=== PATIENT | female | born 1985 | race African-American/Black ===

== ENCOUNTER 2017-07-20 16:55 | Emergency (ER) | payer OTHER ==
[~2017-07-20] VITALS: Ht 175.3 cm; Wt 93.4 kg
[2017-07-20 19:07] VITALS: BP 121/58
== END 2017-07-20 19:08 | disposition home or self-care (01) ==
LOC: FSED 16:55
DX: R07.9 Chest pain, unspecified (principal)
CPT/HCPCS: 93005; 99283

== ENCOUNTER → 2021-10-27 | Day surgery (SDC) | payer OTHER ==
[2021-10-23 11:32] LABS: BASOPHILS # (AUTO) 0.1 (0.0-0.1); EOSINOPHILS # (AUTO) 0.1 (0.0-0.4); EOSINOPHILS % 1.5 % (0.0-6.0); HEMATOCRIT 39.9 % (34.2-44.1); HEMOGLOBIN 13.1 g/dL (12.0-16.0); LYMPHOCYTES # (AUTO) 2.5 (1.0-3.2); LYMPHOCYTES % 40.4 % (18.0-39.1); MEAN CORPUSCULAR HEMOGLOBIN 32.1 pg (28-32); MEAN CORPUSCULAR HGB CONC 32.8 g/dL (31-35); MEAN CORPUSCULAR VOLUME 97.8 fL (81-99); MONOCYTES # (AUTO) 0.5 (0.2-0.8); MONOCYTES % 8.9 % (4.4-11.3); NEUTROPHILS # (AUTO) 2.9 (2.1-6.9); PLATELET COUNT 277 x10e3/uL (140-360); RED BLOOD COUNT 4.08 x10e6/uL (3.6-5.1); RED CELL DISTRIBUTION WIDTH 11.7 % (11.7-14.4)
[~2021-10-27] MED LIST: ADVAIR 100-501 EACH INH; ALBUTEROL HFA INH; BUSPIRONE HCL10 MG PO; CLINDAMYCIN 1%-30 GM TOP; CLOBETASOL 0.0560 GM TOP; FENTANYL CITRATE/PF 100MCG/2 ML INJ ONE; GABAPENTIN400 MG PO; LIDOCAINE HCL 2% LOCAL INJ 5 ML SDV VIAL INJ ONE; LINZESS145 MCG PO; METOCLOPRAMIDE HCL 10 MG/2ML VIAL ONE; METOPROLOL SUCC25 MG PO; MIDAZOLAM HCL 2 MG/2 ML VIAL ONE; MONTELUKAST SOD10 MG PO; PHENTERMINE H37.5 MG PO; POVIDONE IODINE 0.05% 0.05 % ML PO ONE; PROPOFOL IV EMULSION 10 MG/ML 20 ML VIAL ONE; SERTRALINE HCL50 MG PO; SIMETHICONE 40 MG/0.6 ML BTL ONE; SPIRONOLACTONE25 MG PO; TOPAMAX100 MG PO; TRAZODONE HCL100 MG PO; VIT D2 PO; [UNRECOGNIZED DRUG - OTHER] PO
[2021-10-27 14:25] VITALS: BP 105/56
== END | disposition home or self-care (01) ==
LOC: OR 12:20
PROVIDERS: ATTEND Internal Medicine Gastroenterology
DX: K29.70 Gastritis, unspecified, without bleeding (principal); K20.90 Esophagitis, unspecified without bleeding; K58.1 Irritable bowel syndrome with constipation; K59.04 Chronic idiopathic constipation; J45.909 Unspecified asthma, uncomplicated; R90.0 Intracranial space-occupying lesion found on diagnostic imaging of central nervous system; G43.909 Migraine, unspecified, not intractable, without status migrainosus; G93.2 Benign intracranial hypertension; H52 Disorders of refraction and accommodation; H53.8 Other visual disturbances; I82.409 Acute embolism and thrombosis of unspecified deep veins of unspecified lower extremity; G56.03 Carpal tunnel syndrome, bilateral upper limbs; G57.30 Lesion of lateral popliteal nerve, unspecified lower limb; G24.5 Blepharospasm; R00.1 Bradycardia, unspecified; F32.A Depression, unspecified; F41.9 Anxiety disorder, unspecified; Z88.1 Allergy status to other antibiotic agents; Z01.810 Encounter for preprocedural cardiovascular examination; Z01.812 Encounter for preprocedural laboratory examination; Z20.822 Contact with and (suspected) exposure to COVID-19; Z79.899 Other long term (current) drug therapy; Z68.30 Body mass index [BMI] 30.0-30.9, adult
CPT/HCPCS: 0223U; 36415; 43239; 81025; 85025; 93005; C9113; J2001; J2704; J2765; J2250; J3010